=== PATIENT | female | born 1965 | race Two or more races ===

== ENCOUNTER 2017-12-06 09:03 | Outpatient (CLI) | payer OTHER ==
[~2017-12-06 09:03] MED LIST: FIORICET 50-301 EACH PO; SYNTHROID50 MCG; ZEBUTAL CAPSULE1 CAP PO
== END 2017-12-06 09:15 | disposition home or self-care (01) ==
LOC: MAMO-SONO 09:03
DX: Z12.31 Encounter for screening mammogram for malignant neoplasm of breast (principal); N64.59 Other signs and symptoms in breast